=== PATIENT | male | born 1950 | race Caucasian/White ===

== ENCOUNTER 2016-08-11 13:42 | Emergency (ER) | payer OTHER, MEDICARE ==
[~2016-08-11] VITALS: Ht 177.8 cm; Wt 90.7 kg
--- NOTE | 2016-08-11 14:13 | ED AMS/SEIZURE/WEAK/DIZZY ---
History of Present Illness General Chief Complaint: General Adult Stated Complaint: ?SEIZURE Source: patient, patient aid Exam Limitations: unable to give history, confusion Vital Signs & Intake/Output Vital Signs & Intake/Output Vital Signs Date Time Temp Pulse Resp B/P B/P Pulse O2 O2 Flow FiO2 Mean Ox Delivery Rate 08/11 1756 98.0 72 16 179/86 08/11 1754 98.0 72 16 179/86 100 Nasal 2.0L Cannula 08/11 1504 83 15 97 Nasal 4.0L Cannula 08/11 1434 100 94 Nasal 4.0L Cannula 08/11 1343 97.2 104 16 160/93 89 Room Air Allergies Coded Allergies: No Known Allergies (08/11/16) Reconcile Medications Aspirin (Lo-Dose Aspirin EC) 81 MG TABLET.DR 1 TAB PO DAILY HEART/BLOOD ( Reported) Atorvastatin Calcium 80 MG TABLET 1 TAB PO DAILY CHOLESTEROL (Reported) Clopidogrel Bisulfate (Clopidogrel) 75 MG TABLET 1 TAB PO DAILY BLOOD THINNER (Reported) Famotidine (Unknown Strength) TABLET (Unknown Dose) UNKNOWN (Reported) Folic Acid 1 MG TABLET 1 TAB PO DAILY SUPPLEMENT (Reported) Lorazepam (Ativan) 1 MG TABLET 1 TAB PO Q6 ALCOHOL WITHDRAWAL 4 TABS ON DAY 1, THREE TABS ON DAY 2, TWO TABS ON DAY 3 AND ONE TAB ON DAY 4 (SPACED EVENLY) Pregabalin (Lyrica) (Unknown Strength) CAPSULE (Unknown Dose) PO BID NERVE PAIN (Reported) Thiamine Mononitrate (Vitamin B-1) 100 MG TABLET 1 TAB PO DAILY SUPPLEMENT ( Reported) Triage Note: BIBA FROM HOME FOR C/O SEIZURE LIKE ACTIVITY. HAS HOME HEALTH AID WHO IS AT BEDSIDE WHO REPORTS "I CAN'T REMEMBER HOW LONG IT LASTED BECAUSE I WAS ON THE PHONE TRYING TO CALL." REPORTS ARMS AND LEGS SHAKING AND ASSISTED PT TO GROUND WITH NO INJURY. NO HX OF SEIZURES. PT HAS HOME HEALTH D/T "CARDIA C HISTORY AND NEUROPATHY", USES [facility] AT HOME. PER EMS WHEN THEY ARRIVED, PT WAS 180'S HR IN SVT, WHEN STARTING IV HR DOWN TO 100 BPM. EMS STARTED #18 TO RIGHT AC THAT IS NOT FLUSHING AND INFILTRATED. IV DCED UPON ARRIVAL. GLUCOSE IN ROUTE 117. 12 LEAD SHOWED SINUS TACHY. Triage Nurses Notes Reviewed? yes HPI: 66 yo M presented to the ED after an episode of seizure an hour ago. Accoring to his healthcare aid, the patient was sitting in his chair when his body went stiff and he started convulsing. The episode lasted for about 5 minutes after which he regained consciousness but was confused and unaware of what happened. She denies any tongue biting or loss of bladder control during the episode. The patient reports that he has had seziures in the past but is unable to provide more information at the moment. The healthaid reports the patient has had a poor food and water intake for the past two days and has only been drinking ice tea. The patient denies any light headedness, headache or any other symptoms. (JACKELNI DORSEY MD) Past History Travel History Traveled to [place] past 21 day No Medical History Any Pertinent Medical History? see below for history Neurological: peripheral neuropathy EENT: NONE Cardiovascular: angina, hyperlipidemia, myocardial infarction Respiratory: NONE Gastrointestinal: NONE Hepatic: NONE Renal: NONE Musculoskeletal: NONE Psychiatric: NONE Endocrine: NONE Blood Disorders: NONE Cancer(s): NONE TOBACCO BALER/Reproductive: NONE Surgical History Surgical History: non-contributory Psychosocial History What is your primary language Qatari Tobacco Use: Never used ETOH Use: heavy use Illicit Drug Use: denies illicit drug use Family History Hx Contributory? No (JACKELIN DORSEY MD) Review of Systems Review of Systems Constitutional: Reports: no symptoms. EENTM: Reports: no symptoms. Respiratory: Reports: no symptoms. Cardiovascular: Reports: no symptoms. Musculoskeletal: Reports: no symptoms. (JACKELIN DORSEY MD) Physical Exam Physical Exam General Appearance: awake, lethargic, mild distress Head: atraumatic, normal appearance Eyes: Bilateral: normal appearance. Respiratory: normal breath sounds Cardiovascular: regular rate/rhythm Gastrointestinal: soft, non-tender Neurologic/Psych: awake, confused Core Measures ACS in differential dx? No CVA/TIA Diagnosis: No Severe Sepsis Present: No Septic Shock Present: No (JACKELIN DORSEY MD) Progress Differential Diagnosis: dehydration, electrolyte imbalance, seizure disorder, alcohol withdrawal Plan of Care: Orders Procedure Date/time Status Vital Signs 08/11 1735 Active CIWA 08/11 1735 Active Add-on Test (ER Only) 08/11 1627 Active PROLACTIN 08/11 1439 Complete ETHANOL 08/11 1439 Complete FingerStick- Glucose 08/11 1428 Active URINALYSIS 08/11 1408 Complete COMPREHENSIVE METABOLIC PANEL 08/11 1408 Complete CBC WITHOUT DIFFERENTIAL 08/11 1408 Complete Laboratory Tests 08/11/16 1618: Urinalysis HEAVY H, Urine Color YEL, Urine Clarity HAZY H, Urine pH 6.0, Ur Specific [place] >= 1.030, Urine Protein 100 H, Urine Ketones TRACE H, Urine Nitrite NEG, Urine Bilirubin NEG@ICTO, Urine Urobilinogen 1.0, Ur Leukocyte Esterase NEG, Ur Microscopic SEDIMENT EXAMINED, Urine RBC 1-3, Urine WBC RARE, Ur Epithelial Cells FEW, Urine Bacteria RARE H, Granular Casts FEW H, Urine Mucus MOD H, Micro UA Comment MORE INFO: H, Urine Hemoglobin NEG, Urine Glucose NEG 08/11/16 1439: Anion Gap 15, Estimated GFR > 60, BUN/Creatinine Ratio 13.8, Glucose 152 H, Calcium 10.0, Total Bilirubin 1.7 H, AST 37, ALT 22, Alkaline Phosphatase 170 H, Total Protein 8.0, Albumin 4.9, Globulin 3.1, Albumin/Globulin Ratio 1.6, Prolactin 14.4, CBC w Diff NO MAN DIFF REQ, RBC 5.42, MCV 87.6, MCH 29.2, RDW 18.3 H, MPV 8.3, Gran % 72.4, Lymphocytes % 16.9 L, Monocytes % 10.2 H, Eosinophils % 0.3, Basophils % 0.2, Absolute Granulocytes 6.8 H, Absolute Lymphocytes 1.6, Absolute Monocytes 0.9 H, Absolute Eosinophils 0, Absolute Basophils 0, PUBS MCHC 33.3, Serum Alcohol < 10.0 Initial ED EKG: none (WLILIAN KLINE,JACKELIN) Departure Departure Disposition: HOME OR SELF CARE Condition: Stable Clinical Impression Primary Impression: Seizure (JACKELIN DORSEY MD) Departure Referrals: KEY KLINE,BRANDI TAVARES APRN (PCP/Family) Additional Instructions: Follow up with Dr Oro for seizures as soon as possible. Notify your primary care doctor of this emergency department visit and treatment plan. Do not drink while taking the Ativan prescription. Return for any worsening symptoms or concerns. Departure Forms: Customer Survey DETOX FACILITIES LIST General Discharge Information Prescriptions: Current Visit Scripts Lorazepam (Ativan) 1 TAB PO Q6 #10 TAB 4 TABS ON DAY 1, THREE TABS ON DAY 2, TWO TABS ON DAY 3 AND ONE TAB ON DAY 4 (SPACED EVENLY) Resident Co-Sign Statement Statement: ED Attending supervision documentation- [X] I saw and evaluated the patient. I have also reviewed all the pertinent lab results and diagnostic results. I agree with the findings and the plan of care as documented in the Resident's documentation. [] I have reviewed the ED Record and agree with the Resident's documentation. [] Additions or exceptions (if any) to the Resident's note and plan are summarized below: [] (ARI KLINE,LIZZY De Leon)
[2016-08-11 14:56] LABS: ABSOLUTE BASOPHIL COUNT 0 /CUMM (0.0-0.2); ABSOLUTE EOSINOPHIL COUNT 0 /CUMM (0.0-0.7); ABSOLUTE GRANULOCYTE CT 6.8 /CUMM (1.4-6.5); ABSOLUTE LYMPH COUNT 1.6 /CUMM (1.2-3.4); ABSOLUTE MONOCYTE COUNT 0.9 /CUMM (0.10-0.60); BASOPHIL % 0.2 % (0.0-2.0); EOSINOPHIL % 0.3 % (0-5); GRANULOCYTE % 72.4 % (42.2-75.2); HEMATOCRIT 47.5 % (42-52); MEAN CORPUSCULAR HGB 29.2 PG (27.0-31.0); MEAN CORPUSCULAR HGB CONC 33.3 G/DL (33.0-37.0); MEAN CORPUSCULAR VOLUME 87.6 FL (80.0-94.0); MEAN PLATELET VOLUME 8.3 FL (7.4-10.4); PLATELET COUNT 231 /CUMM (130-400); RBC DISTRIBUTION WIDTH 18.3 % (11.5-14.5); RED BLOOD CELL CT 5.42 /CUMM (4.70-6.10); WHITE BLOOD CELL COUNT 9.3 /CUMM (4.8-10.8)
[2016-08-11] MEDS ORDERED: VITAMIN B-1100 M1 PO (17:18)
[2016-08-11] MEDS ORDERED: ATORVASTATIN CA80 M1 PO (17:18)
[2016-08-11] MEDS ORDERED: LYRICA150 M1 PO (17:18)
[2016-08-11] MEDS ORDERED: FOLIC ACID1 M1 PO (17:18)
[2016-08-11] MEDS ORDERED: LO-DOSE ASPIRIN81 MG PO (17:19)
[2016-08-11] MEDS ORDERED: CLOPIDOGREL75 M1 PO (17:19)
[2016-08-11] MEDS ORDERED: FAMOTIDINE20 M1 (17:19)
[2016-08-11 17:56] VITALS: BP 179/86
[2016-08-11] MEDS ORDERED: ATIVAN1 M1 PO (19:15)
== END 2016-08-11 19:36 ==
LOC: ERH 13:42
DX: R56.9 Unspecified convulsions (principal)
CPT/HCPCS: 81001; G0480